=== PATIENT | female | born 2000 | race Caucasian/White ===

== ENCOUNTER 2019-12-14 19:24 | Emergency (ER) | payer OTHER, SELFPAY ==
--- NOTE | 2019-12-14 19:27 | ED.GENADULT ---
HPI - General Adult General Chief complaint: Upper Respiratory Infection Stated complaint: Sore Throat Time Seen by Provider: 12/14/19 19:41 Source: patient Mode of arrival: ambulatory Limitations: no limitations History of Present Illness HPI narrative: 19-year-old female patient resents to the [facility] with complaints of sore throat for the past 3 days. Patient states she has been running a fever as high as 101 but denies any runny nose, or ear pain. Denies any cough, chest pain, shortness of breath, abdominal pain, nausea, vomiting or diarrhea. Patient states she did not get a flu shot this year. Related Data Allergies Allergy/AdvReac Type Severity Reaction Status Date / Time azithromycin Allergy Intermediate Swelling Verified 12/14/19 19:39 Penicillins Allergy Unknown Swelling Verified 12/14/19 19:39 Review of Systems Review of Systems: Narrative: CONSTITUTIONAL: Positive subjective fever, denies chills, or sweats. EYES: Denies visual changes, redness, or discharge. ENT: Denies rhinorrhea, congestion, positive sore throat, denies otalgia. CARDIOVASCULAR: Denies chest pain, palpitations, or edema. RESPIRATORY: Denies cough or dyspnea. GASTROINTESTINAL: Denies abdominal pain, nausea, vomiting, or diarrhea. GENITOURINARY: Denies dysuria or hematuria. SKIN: Denies rash or itching. MUSCULOSKELETAL: Denies back pain, joint pain, or myalgia. NEUROLOGIC: Denies headache, numbness, or weakness. PSYCHIATRIC: Denies anxiety or depression. PMFSH Family History Family History Grandparent Diabetes mellitus Father Hypertension Cerebrovascular accident Social History Social History Alcohol intake: never Comments At the time of my signature I agree with nursing past medical history, surgical, social, and family history. There is no relevant family history pertinent to the presenting complaint. Exam Narrative: Exam Narrative: GENERAL: Well-appearing, well-nourished, and in no acute distress. HEAD: Normocephalic, atraumatic. No tenderness noted to frontal maxillary sinuses on palpation. EYES: PERRLA and EOMI. ENT: Nares clear, no rhinorrhea or epistaxis. Mucous membranes moist. Posterior pharynx with erythema and bilateral white exudates noted. Bilateral TMs are clear no erythema or foreign bodies in the canal. NECK: Supple. No lymphadenopathy CHEST: Clear to auscultation. No respiratory distress. HEART: Regular rate and rhythm. No murmur heard. Normal peripheral pulses. ABDOMEN: Soft, nontender, nondistended, normal active bowel sounds. EXTREMITIES: Normal range of motion. No edema. SKIN: Warm, dry, no rash. NEURO: No focal deficits. Alert and oriented x3. Course Vital Signs Vital signs: Vital Signs Temperature 37.5 C 12/14/19 19:34 Pulse Rate 93 12/14/19 19:34 Respiratory Rate 16 12/14/19 19:34 Blood Pressure 129/66 12/14/19 19:34 Pulse Oximetry 98 12/14/19 19:34 Temperature 37.5 C 12/14/19 19:34 Pulse Rate 93 12/14/19 19:34 Respiratory Rate 16 12/14/19 19:34 Blood Pressure 129/66 12/14/19 19:34 Pulse Oximetry 98 12/14/19 19:34 Vital signs reviewed. Medical Decision Making Differential Diagnosis Differential Diagnosis: Differential diagnosis: Viral pharyngitis, pharyngitis, group A strep, infectious mononucleosis, gonococcal pharyngitis, exudative pharyngitis, oral candidiasis. Chronic allergies, postnasal drip, GERD, abscess formation, but glottitis, retropharyngeal abscess formation, or airway obstruction. Notify patient she is positive today for strep and therefore we will discharge her home with an oral antibiotic for her strep infection. Discussed with patient she can take Tylenol and ibuprofen as needed for the pain. Discussed with patient if she has worsening symptoms she would need to follow-up with her primary doctor or report to the emergency department. Annelise
[2019-12-14 19:34] VITALS: BP 129/66; PULSE 93; RESP 16; TEMP 37.5; O2SAT 98
== END 2019-12-14 19:48 | disposition home or self-care (01) ==
PROVIDERS: Emergency Provider Nurse Practitioner Family; PCP Emergency Medicine
DX: J02.0 Streptococcal pharyngitis (principal)
CPT/HCPCS: 87880; 99213; G0463

== ENCOUNTER 2021-06-15 18:39 | Emergency (ER) | payer OTHER, SELFPAY ==
--- NOTE | ~2021-06-15 | CT_ITS ---
EXAMINATION: CT brain wo con DATE: 06/15/2021 21:24 INDICATION: Frontal headache. Blurry vision. TECHNIQUE: Computed tomography (CT) of the head was performed without intravenous contrast. The mA wa s adjusted according to patient size. Iterative reconstruction technique was employed. Exam dose: 60 5.33 mGy-cm total exam DLP. COMPARISON: None FINDINGS: No intracranial mass lesion or hemorrhage, midline shift or mass effect. No encephalomalaci a or cerebrovascular accident. Normal ventricular size. Normal linton-white matter differentiation. No subdural or epidural hematoma. There is complete opacification of the right sphenoid sinus. Included paranasal sinuses are otherwise normally developed and aerated. The mastoid air cells are normally developed and aerated. No fracture or bone destruction of the cranial vault IMPRESSION: Complete opacification of the right sphenoid sinus; otherwise negative Reviewed, dictated and finalized at [facility] Reviewed, dictated and finalized at [facility]. IMPRESSION: Complete opacification of the right sphenoid sinus; otherwise nega tive
[2021-06-15 18:45] VITALS: BP 124/67; PULSE 96; RESP 18; TEMP 36.3
[2021-06-15 20:17] VITALS: BP 116/63; PULSE 82; RESP 18; O2SAT 100
[2021-06-15 20:25] LABS: Basophils Percent Auto 0.4 % (0.2-1.2); Eosinophils Absolute Auto 0.2 K/mm3 (0-0.3); Eosinophils Percent Auto 1.8 % (0-4.4); Hematocrit 46.1 % (37.0-47.0); Hemoglobin 14.4 g/dL (12.0-15.0); Immature Granulocyte Absolute 0.08 K/mm3 (0.00-0.031); Immature Granulocyte Percent A 0.8 % (0-0.5); Lymphocytes Absolute Auto 3.53 K/mm3 (0.9-3.2); Lymphocytes Percent Auto 36.6 % (18.3-44.2); Mean Corpuscular HGB Conc 31.2 g/dl (32-36); Mean Corpuscular Hemoglobin 28.8 pg (26-34); Mean Corpuscular Volume 92.2 fl (80-100); Monocytes Absolute Auto 0.8 K/mm3 (0.1-0.6); Monocytes Percent Auto 8.5 % (2.6-8.5); Neutrophils Percent Auto 51.9 % (45.5-73.1); Platelet Count Result 339 k/mm3 (150-375); Red Cell Distribution Width 15.4 % (11.5-14.5); White Blood Count 9.7 K/mm3 (4.5-10.0)
[2021-06-15 20:36] LABS: Alanine Aminotransferase 51 U/L (4-35); Albumin Level 4.3 g/dL (3.5-5.1); Alkaline Phosphatase 97 U/L (38-126); Anion Gap 6 mmol/L (8-16); Aspartate Amino Transferase 39 U/L (14-36); Bilirubin,Total 0.3 mg/dL (0.2-1.3); Blood Urea Nitrogen 14 mg/dL (7-17); Calcium 9.9 mg/dL (8.4-10.2); Carbon Dioxide 30 mmol/L (22-30); Chloride 105 mmol/L (98-107); Estimated CRCL calculation 115 ml/min; Estimated Glomerular Filt Rate > 60; Glucose 75 mg/dL (65-110); Potassium 4.5 mmol/L (3.4-5.0); Sodium 141 mmol/L (137-145)
--- NOTE | 2021-06-15 21:18 | PC.NURSE ---
Pt to CT at this time.
[2021-06-15 21:28] VITALS: BP 113/67; PULSE 79; RESP 20; O2SAT 100
[2021-06-15 21:31] VITALS: BP 114/71; PULSE 83; RESP 17; O2SAT 99
--- NOTE | 2021-06-15 21:58 | ED.HA ---
HPI - Headache General Chief Complaint: Headache Stated Complaint: Headaches after having a child x 7 weeks Time Seen by Provider: 06/15/21 20:12 History of Present Illness HPI Narrative: Patient is a 21-year-old female who presents ER with headache. Ongoing for 7 weeks since she had her baby. Contacted her horse trainer who recommend she be evaluated. Patient denies any fevers or chills or sweats. She does endorse photophobia and occasional phonophobia. No history of migraines. She reports she has 8/10 pain but then when she takes Excedrin goes to 2/10. No complications with her . She is not currently breast-feeding. Related Data Allergies Allergy/AdvReac Type Severity Reaction Status Date / Time azithromycin Allergy Intermediate Swelling Verified 06/15/21 19:57 Penicillins Allergy Unknown Swelling Verified 06/15/21 19:57 Review of Systems Review of Systems: All systems reviewed & are unremarkable except as noted in HPI and below Constitutional: Constitutional: Denies chills, Denies fever(s) and Denies weakness Eyes: Eyes: Denies change in vision and Reports photophobia ENT: Denies nasal congestion and Denies sore throat Cardiovascular: Cardiovascular: Denies chest pain, Denies rapid heart rate and Denies radiating jaw, neck or arm pain Respiratory: Respiratory: Denies cough, Denies dyspnea and Denies wheezing Gastrointestinal: Gastrointestinal: Denies abdominal pain, Denies nausea and Denies vomiting Neurologic: Denies syncope, Reports headache(s), Denies focal weakness and Denies numbness PMFSH Past Medical History Medical History (Updated 06/15/21 @ 23:02 by Scooby Ortiz MD) Healthy female adult Surgical History Surgical History (Updated 06/15/21 @ 22:01 by Scooby Ortiz MD) No pertinent past surgical history Family History Family History Grandparent Diabetes mellitus Father Hypertension Cerebrovascular accident Social History Social History Alcohol intake: never Exam Narrative: GENERAL: Well-appearing, well-nourished, and in no acute distress. HEAD: Normocephalic, atraumatic. EYES: PERRL and EOMI. CHEST: Clear to auscultation. No respiratory distress. HEART: Regular rate and rhythm. Normal peripheral pulses. ABDOMEN: Soft, nontender, nondistended. EXTREMITIES: Normal range of motion. No edema. SKIN: Warm, dry, no rash. NEURO: Alert and oriented x3. PSYCH: Normal mood and affect. Course Course Emergency Course: Headache improved. Informed results. Discharge home. Vital Signs Vital signs: Vital Signs Temperature 97.4 F L 06/15/21 18:45 Pulse Rate 96 06/15/21 18:45 Respiratory Rate 18 06/15/21 18:45 Blood Pressure 124/67 06/15/21 18:45 Temperature 97.4 F L 06/15/21 18:45 Pulse Rate 70 06/15/21 22:13 Respiratory Rate 19 06/15/21 22:13 Blood Pressure 110/54 L 06/15/21 22:13 Pulse Oximetry 99 06/15/21 22:13 MDM - Headache Lab Data Result diagrams: 06/15/21 20:19 06/15/21 20:18 Labs: Lab Results 06/15/21 06/15/21 06/15/21 Range/Units 20:18 20:19 22:13 WBC 9.7 (4.5-10.0) K/mm3 RBC 5.00 (4.2-5.4) M/mm3 Hgb 14.4 (12.0-15.0) g/dL Hct 46.1 (37.0-47.0) % MCV 92.2 (80-100) fl MCH 28.8 (26-34) pg MCHC 31.2 L (32-36) g/dl RDW 15.4 H (11.5-14.5) % Plt Count 339 (150-375) k/mm3 MPV 9.0 (7.4-10.4) fl Immature Gran % (Auto) 0.8 H (0-0.5) % Neut % (Auto) 51.9 (45.5-73.1) % Lymph % (Auto) 36.6 (18.3-44.2) % [place] % (Auto) 8.5 (2.6-8.5) % Eos % (Auto) 1.8 (0-4.4) % Baso % (Auto) 0.4 (0.2-1.2) % Lymph # (Auto) 3.53 H (0.9-3.2) K/mm3 [place] # (Auto) 0.8 H (0.1-0.6) K/mm3 Eos # (Auto) 0.2 (0-0.3) K/mm3 Baso # (Auto) 0.0 (0.0-0.1) K/mm3 Abs Immat Gran (auto) 0.08 H (0.00-0.031) K/mm3 Absolute
[2021-06-15] MEDS: SODIUM CHLORIDE 0.9% IV 1,000 ML 999 ML IV CONT (22:05)
[2021-06-15] MEDS: diphenhydrAMINE HCl INJ 50 MG/ML VIAL 25 MG IV PUSH (22:06)
[2021-06-15] MEDS: METOCLOPRAMIDE HCL INJ 10 MG/2 ML VIAL IV PUSH (22:08)
[2021-06-15] MEDS: KETOROLAC 30 MG/ML VIAL (*BKC) IV PUSH (22:11)
[2021-06-15 22:13] VITALS: BP 110/54; PULSE 70; RESP 19; O2SAT 99
[2021-06-15 22:24] LABS: Add Urine Microscopic? YES; Appearance Urine Clear (Clear); Bacteria Urine Trace /hpf; Bilirubin Urine Negative (Negative); Blood Urine Negative (Negative); Color Urine Yellow (Yellow); Glucose Urine UA Negative (Negative); Ketones Urine Negative (Negative); Leukocyte Esterase Ur Negative LEU/UL (Negative); Mucus Urine Rare /lpf; Nitrate Urine Negative (Negative); Protein Urine Negative (Negative); Specific Grav Ur 1.018 (1.001-1.035); Squamous Epithelial Cell Urine Rare /hpf (Few); WBC Urine 0-3 /hpf
[2021-06-15 23:12] VITALS: BP 135/61; PULSE 78; RESP 12; O2SAT 98
== END 2021-06-15 23:16 | disposition home or self-care (01) ==
PROVIDERS: Emergency Provider Emergency Medicine
DX: R51.9 Headache, unspecified (principal)
CPT/HCPCS: 36415; 70450; 80053; 81001; 85025; 96361; 96374; 96375; 99284; J1200; J1885; J2765; J7030

== ENCOUNTER 2022-01-20 12:04 | Emergency (ER) | payer OTHER, SELFPAY ==
[2022-01-20 12:12] VITALS: BP 131/78; PULSE 84; RESP 18; TEMP 36.4; O2SAT 97
[2022-01-20 12:16] VITALS: BP 131/78; PULSE 84; RESP 18; TEMP 36.4; O2SAT 97
--- NOTE | 2022-01-20 12:49 | ED.FEMALEGU ---
HPI - Female Genitourinary General Chief complaint: Urogenital-Female Stated complaint: UTI Time Seen by Provider: 01/20/22 12:43 Source: patient and RN notes reviewed Mode of arrival: ambulatory Limitations: no limitations History of Present Illness HPI Narrative: Patient presents today complaining of 1.5-week history of dysuria, frequency, intermittent lower abdominal cramping, incomplete bladder emptying, and left kidney pain . Denies hematuria, fever, nausea or vomiting. She has been drinking cranberry juice. Denies any recent antibiotic use. MD elicited complaint: UTI Related Data Allergies Allergy/AdvReac Type Severity Reaction Status Date / Time azithromycin Allergy Intermediate Swelling Verified 01/20/22 12:13 Penicillins Allergy Unknown Swelling Verified 01/20/22 12:13 Review of Systems Review of Systems: CONSTITUTIONAL: Denies body aches, fever, chills, or sweats. EYES: Denies visual changes, redness, or discharge. ENT: Denies rhinorrhea, congestion, sore throat, or otalgia. CARDIOVASCULAR: Denies chest pain, palpitations, or edema. RESPIRATORY: Denies cough or dyspnea. GASTROINTESTINAL: Denies abdominal pain, nausea, vomiting, or diarrhea. GENITOURINARY: Denies hematuria. + Dysuria, frequency, cramping, left flank pain SKIN: Denies rash, itching, or wounds. MUSCULOSKELETAL: Denies back pain, joint pain, or myalgia. NEUROLOGIC: Denies headache, numbness, tingling, or weakness. PSYCH: Denies depression or anxiety. [facility] Past Medical History Medical History Healthy female adult Surgical History Surgical History No pertinent past surgical history Family History Family History Grandparent Diabetes mellitus Father Hypertension Cerebrovascular accident Social History Social History Alcohol intake: never Comments At time of signature, I have reviewed and agree with nursing past medical, surgical, social and family history unless otherwise noted. Please see nursing chart for further information. There is no relevant family history pertinent to the presenting complaint Exam Narrative: GENERAL: Well-appearing, well-nourished, and in no acute distress. HEAD: Normocephalic, atraumatic. EYES: EOMI. No redness or drainage. Conjunctivae normal. ENT: Mucous membranes pink and moist. NECK: Normal AROM. Supple. No lymphadenopathy. CHEST: No respiratory distress. Clear to auscultation. HEART: Regular rate and rhythm. No murmur appreciated. Normal peripheral pulses. ABDOMEN: Soft, nontender, nondistended, normal active bowel sounds. -CVAT MUSCULOSKELETAL: No bony tenderness. EXTREMITIES: Normal range of motion. No edema. SKIN: Warm, dry, no rash. Capillary refill normal. Normal skin turgor. NEURO: No focal deficits. Alert and oriented x3. Gait steady. PSYCH: Normal affect. No signs of depression or anxiety. Course Course Level of Care: Express Care Visit Vital Signs Vital signs: Vital Signs Temperature 97.5 F L 01/20/22 12:12 Pulse Rate 84 01/20/22 12:12 Respiratory Rate 18 01/20/22 12:12 Blood Pressure 131/78 01/20/22 12:12 Pulse Oximetry 97 01/20/22 12:12 Temperature 97.5 F L 01/20/22 12:16 Pulse Rate 84 01/20/22 12:16 Respiratory Rate 18 01/20/22 12:16 Blood Pressure 131/78 01/20/22 12:16 Pulse Oximetry 97 01/20/22 12:16 Reviewed. Pt has been instructed to follow up with her PCP regarding her elevated blood pressure today. MDM - Female Genitourinary Differential Diagnosis Differential diagnosis: Likely urinary tract infection, vaginitis, cystitis and other (Pyelonephritis, interstitial cystitis) Lab Data Attestation: I reviewed the patient's lab results. Labs: Urine Glucose Negative
== END 2022-01-20 12:57 | disposition home or self-care (01) ==
PROVIDERS: Emergency Provider Nurse Practitioner
DX: N30.01 Acute cystitis with hematuria (principal)
CPT/HCPCS: 81003; 87086; 99213; G0463

== ENCOUNTER 2022-10-08 13:23 | Observation (INO) | payer OTHER, SELFPAY ==
[2022-10-08 13:41] VITALS: BP 108/59; PULSE 101
[2022-10-08 13:55] LABS: Appearance Urine Clear (Clear); Bilirubin Urine 1+ (Negative); Blood Urine Negative (Negative); Color Urine Yellow (Yellow); Glucose Urine UA Negative (Negative); Ketones Urine Trace mg/dL (Negative); Leukocyte Esterase Ur Negative LEU/UL (Negative); Nitrate Urine Negative (Negative); Protein Urine 1+ mg/dL (Negative); Urobilinogen Urine 0.2 mg/dL (<2.0)
[2022-10-08 14:00] VITALS: BP 101/59; PULSE 88
[2022-10-08 14:01] LABS: Bacteria Urine Trace /hpf; Mucus Urine Few /lpf; RBC Urine 0-2 /hpf (0-2); Squamous Epithelial Cell Urine Moderate /hpf (Few); WBC Urine 0-3 /hpf
[2022-10-08 14:05] LABS: Add Urine Microscopic? YES
[2022-10-08 14:50] VITALS: BMI 40.3
--- NOTE | 2022-10-08 15:03 | OBADM ---
This patient, Tonya Nina, admitted to the OB room OB Post 116 for observation. Patient/family oriented to hospital policies and general routines including ID bracelet, bed and alarms, visiting hours, pain management, procedures, bathroom and other care routines, personal items, smoking policy, room service/diet, and visiting hours. Patient/Family are encouraged to report perceived risks to care and to ask questions if they do not understand what they are told or what they should do.
--- NOTE | 2022-10-11 12:13 | PM.OBTRLD ---
OB - Triage/Final Diagnosis Visit Information Comments/Additional reasons for admission: I have assessed the risk for this patient, Tonya Nina, and determined that she would benefit from observation care. Evaluation Laboratory results: Laboratory Tests 10/08/22 13:42 Urine Color Yellow Urine Appearance Clear Urine pH 7.0 Ur Specific [place] 1.020 Urine Protein 1+ H Urine Glucose (UA) Negative Urine Ketones Trace Ur Blood (Man) Negative Urine Nitrate Negative Urine Bilirubin 1+ H Urine Urobilinogen 0.2 Leukocyte Esterase Rfl Negative Urine RBC 0-2 Urine WBC 0-3 Ur Squamous Epith Cells Moderate H Urine Bacteria Trace Urine Mucus Few H Final Diagnosis (1) Abdominal pain affecting : Code(s): O26.899 - Other specified related conditions, unspecified trimester; R10.9 - Unspecified abdominal pain Status: Acute (2) Cough: Code(s): R05.9 - Cough, unspecified Status: Acute
== END 2022-10-08 14:35 | disposition home or self-care (01) ==
PROVIDERS: Admitting Provider Obstetrics & Gynecology; Visit Provider Obstetrics & Gynecology
DX: O26.893 Other specified pregnancy related conditions, third trimester (principal); R10.9 Unspecified abdominal pain; R05.9 Cough, unspecified; Z3A.37 37 weeks gestation of pregnancy
CPT/HCPCS: 81001; G0378; G0379

== ENCOUNTER 2022-10-27 08:36 | Inpatient (IN) | payer OTHER, SELFPAY ==
[2022-10-27] VITALS (36 sets, daily range): BP systolic 89–137; BP diastolic 43–87; PULSE 70–113; RESP 16–18; TEMP 36–37.2; O2SAT 96–99; BMI 40.7
--- NOTE | 2022-10-27 08:36 | LDADM ---
This patient, Tonya Nina, was admitted to Labor/Delivery/Recovery 105 on 10/27/22 at 08:36. Plans for labor, pain management and were discussed with patient. Patient/family oriented to hospital policies and general routines including ID bracelet, bed and alarms, visiting hours, pain management, procedures, bathroom and other care routines, personal items, smoking policy, room service/diet and guest tray routines, infant security routines, and visiting hours. Patient/Family are encouraged to report perceived risks to care and to ask questions if they do not understand what they are told or what they should do. See OBIX for further documentation.
[2022-10-27 09:30] LABS: Basophils Percent Auto 0.4 % (0.2-1.2); Eosinophils Absolute Auto 0.1 K/mm3 (0-0.3); Eosinophils Percent Auto 0.6 % (0-4.4); Hematocrit 35.2 % (37.0-47.0); Hemoglobin 11.3 g/dL (12.0-15.0); Immature Granulocyte Absolute 0.16 K/mm3 (0.00-0.031); Immature Granulocyte Percent A 1.4 % (0-0.5); Lymphocytes Absolute Auto 2.48 K/mm3 (0.9-3.2); Lymphocytes Percent Auto 22.3 % (18.3-44.2); Mean Corpuscular HGB Conc 32.1 g/dl (32-36); Mean Corpuscular Hemoglobin 27.8 pg (26-34); Mean Corpuscular Volume 86.7 fl (80-100); Mean Platelet Volume 9.5 fl (7.4-10.4); Monocytes Absolute Auto 0.8 K/mm3 (0.1-0.6); Monocytes Percent Auto 7.2 % (2.6-8.5); Neutrophils Absolute Auto 7.6 K/mm3 (1.3-6.7); Neutrophils Percent Auto 68.1 % (45.5-73.1); Platelet Count Result 286 k/mm3 (150-375); Red Blood Count 4.06 M/mm3 (4.2-5.4); Red Cell Distribution Width 14.6 % (11.5-14.5); White Blood Count 11.1 K/mm3 (4.5-10.0)
[2022-10-27] MEDS: LACTATED RINGERS 1,000 ML 125 ML IV CONT ×2 (10:40→13:33)
[2022-10-27] MEDS: OXYTOCIN 30 UNITS/NS 500 ML 30 UNITS/500 ML BAG IV CONT (10:41)
[2022-10-27] MEDS: CLINDAMYCIN 900 MG/D5W 50 ML 900 MG/50 ML PIGGYBACK 50 MG IVPB (10:41)
--- NOTE | 2022-10-27 12:03 | PM.IMHP ---
H&P: HPI History of Present Illness Date/Time: 10/27/22 12:03 Chief Complaint: Labor Narrative: a 22-year-old EDC is 10/27/2022 by early ultrasound and visit complains labor at term she is negative for group B strep in her has been complicated PMFSH Past Medical History Medical History Healthy female adult Surgical History Surgical History No pertinent past surgical history Family History Family History Grandparent Diabetes mellitus Father Hypertension Cerebrovascular accident S/P CABG x 5 Social History Social History Years smoked: 5 Smoking status: Current every day smoker Tobacco type: cigarettes Alcohol intake: never Substance use: never Lack of Transportation: No Lack of Food: Never True Current Housing: I Have Housing Concerned About Future Housing: No Difficulty Paying Gas/Electric Bills: No Difficulty Paying for Meds: No Currently Unemployed: No Education: High School Diploma/GED Difficulty w/ Childcare or Family Care: No Spiritual care concerns: No Meds Home Medications and Allergies Allergies Allergy/AdvReac Type Severity Reaction Status Date / Time azithromycin Allergy Intermediate Swelling Verified 10/12/22 15:43 Penicillins Allergy Unknown Swelling Verified 10/12/22 15:43 Vital Signs Vital Signs - 24 hr 10/27/22 08:59 10/27/22 09:01 10/27/22 09:31 Temperature Pulse Rate 97 113 H 113 H Blood Pressure 119/68 119/70 112/68 Oxygen Delivery 10/27/22 09:46 10/27/22 10:01 10/27/22 10:07 Temperature 97.9 F Pulse Rate 103 H 102 H Blood Pressure 111/59 L 111/63 Oxygen Delivery 10/27/22 10:16 10/27/22 10:31 10/27/22 11:02 Temperature Pulse Rate 99 96 96 Blood Pressure 122/59 L 122/63 118/61 Oxygen Delivery 10/27/22 11:16 10/27/22 11:31 10/27/22 11:46 Temperature Pulse Rate 84 93 91 Blood Pressure 117/50 L 116/63 109/65 Oxygen Delivery 10/27/22 11:58 10/27/22 12:01 10/27/22 09:57 Temperature 96.8 F L Pulse Rate 87 Blood Pressure 119/87 Oxygen Delivery Room Air Exam Const: General: cooperative, healthy appearing and comfortable Nutritional Appearance: overweight Orientation/consciousness: oriented to person, oriented to place and oriented to time HENMT: Head: normal to inspection Resp: Effort & Inspection: normal respiratory effort Cardio: Rate: regular rate Rhythm: regular rhythm Heart sounds: S1 normal heart sound present and S2 normal heart sound present GI: Inspection: normal to inspection ( soft gravid uterus) : External Female Exam: normal external appearance Speculum Exam - Vagina: normal appearance of the vagina Speculum Exam - Cervix: normal appearance of the cervix ( /-1. AROM clear FHTs were reassuring) H&P: Results Labs Labs: Short CBC 10/27/22 Range/Units 09:03 WBC 11.1 H (4.5-10.0) K/mm3 Hgb 11.3 L D (12.0-15.0) g/dL Hct 35.2 L (37.0-47.0) % Plt Count 286 (150-375) k/mm3 Assessment and Plan Assessment and plan (1) Term : Code(s): Z34.90 - Encounter for supervision of normal , unspecified, unspecified trimester Status: Acute Plan spontaneous vaginal delivery is expected
--- NOTE | 2022-10-27 14:23 | PM.OBPRVD ---
OB - Delivery Note Procedure Delivery date: 10/27/22 Induction method: None Delivery augmentation: Pitocin Delivery monitor: External FHT Route of delivery: Episiotomy description: None Laceration Description: None Specimen: No Quantitative Blood Loss (ml): 60 Anesthesia type: None Disposition: Floor Baby Date of : 10/27/22 Time of : 14:16 Weeks of gestation at delivery: 39 Infant gender: Female Weight (pounds): 6 Weight (ounces): 15 presentation: vertex position: Right Occiput Anterior Placenta delivery description: Spontaneous Cord Vessel Description: 3 Vessels, Nuchal Cord, Loose, Reduced and Delayed Cord Clamping score one minute: 9 score five minutes: 9
[2022-10-27] MEDS: OXYTOCIN 30 UNITS/NS 500 ML 30 UNITS/500 ML BAG 125 UNITS IV CONT (14:52)
[2022-10-27 15:57] LABS: Rapid Plasma Reagin Non-Reactive (NonReactive)
[2022-10-27] MEDS: WITCH HAZEL 40 PADS 1 PAD TOPICAL (16:47)
[2022-10-27] MEDS: BENZOCAINE 20% AER SPR (*SP) 56 GM CAN 1 SPRAY TOPICAL (16:47)
--- NOTE | 2022-10-27 17:00 | OBPPTRN ---
Patient transferred to post room #285 via wheelchair. Support person present. Oriented to unit, room, information board, rooming in, admission packet and security measures. Patient verbalizes understanding.
[2022-10-27] MEDS: IBUPROFEN 600 MG TABLET PO (17:18)
[2022-10-27] MEDS: DOCUSATE SODIUM 100 MG CAPSULE PO (17:18)
[2022-10-28 05:05] VITALS: BP 116/67; PULSE 74; RESP 18; TEMP 36.8; O2SAT 99
[2022-10-28 05:29] LABS: Hematocrit 33.1 % (37.0-47.0); Hemoglobin 10.5 g/dL (12.0-15.0)
[2022-10-28] MEDS: ACETAMINOPHEN 325 MG TABLET 650 MG PO ×2 (05:46→13:53)
[2022-10-28] MEDS: IBUPROFEN 600 MG TABLET PO ×2 (05:47→13:53)
--- NOTE | 2022-10-28 07:05 | P.PNOB_ITS ---
OB - PN: Subj Subjective Date/time seen: 10/28/22 07:05 Patient comments: no complaints and pain well controlled baby status: doing well and nursing well OB - PN: Obj Data Labs 10/28/22 04:15 Labs: Laboratory Results - last 24 hr 10/27/22 10/27/22 10/27/22 09:03 09:03 09:03 WBC 11.1 H RBC 4.06 L Hgb 11.3 L D Hct 35.2 L MCV 86.7 MCH 27.8 MCHC 32.1 RDW 14.6 H Plt Count 286 MPV 9.5 Immature Gran % (Auto) 1.4 H Neut % (Auto) 68.1 Lymph % (Auto) 22.3 [place] % (Auto) 7.2 Eos % (Auto) 0.6 Baso % (Auto) 0.4 Lymph # (Auto) 2.48 [place] # (Auto) 0.8 H Eos # (Auto) 0.1 Baso # (Auto) 0.0 Abs Immat Gran (auto) 0.16 H Absolute Neuts (auto) 7.6 H Absolute Nucleated RBC 0.0 Nucleated RBC % 0.0 RPR Non-reactive Blood Type A Negative Antibody Screen Negative 10/28/22 10/28/22 04:15 04:15 WBC RBC Hgb 10.5 L Hct 33.1 L MCV MCH MCHC RDW Plt Count MPV Immature Gran % (Auto) Neut % (Auto) Lymph % (Auto) [place] % (Auto) Eos % (Auto) Baso % (Auto) Lymph # (Auto) [place] # (Auto) Eos # (Auto) Baso # (Auto) Abs Immat Gran (auto) Absolute Neuts (auto) Absolute Nucleated RBC Nucleated RBC % RPR Blood Type A Negative Antibody Screen Negative OB - PN A/P Plan day: 1 Plan: routine care Time Spent With Patient Time: Total time spent is greater than 50% in coordination of care (as documented) at patient's floor/unit and/or counseling patient: Time with patient: less than 15 minutes Exam Const: General: cooperative, healthy appearing and comfortable Orientation/consciousness: oriented to person, oriented to place and oriented to time HENMT: Head: normal to inspection Resp: Effort & Inspection: normal respiratory effort Cardio: Rate: regular rate Rhythm: regular rhythm Heart sounds: S1 normal heart sound present and S2 normal heart sound present GI: Inspection: normal to inspection
[2022-10-28 08:00] VITALS: PULSE 80; RESP 18; O2SAT 97
[2022-10-28 08:20] VITALS: BP 109/52; PULSE 80; RESP 18; TEMP 36.8; O2SAT 97
[2022-10-28] MEDS: MULTIVIT/MIN/PREN/FOL AC/IRON TABLET 1 TAB PO (08:20)
[2022-10-28] MEDS: DOCUSATE SODIUM 100 MG CAPSULE PO (08:20)
[2022-10-28] MEDS: POLYSACCHARIDE IRON COMPLEX 150 MG CAPSULE PO (08:20)
[2022-10-28 12:18] VITALS: BP 104/52; PULSE 76; RESP 16; TEMP 36.8; O2SAT 97
[2022-10-28] MEDS: RHO(D) IMMUNE GLOBULIN 300 MCG/2 ML SYRINGE IM (13:49)
--- NOTE | 2022-10-28 14:58 | P.DS_ITS ---
DS: Admitting Diagnosis Discharge Date Admitting Diagnosis term DS: Discharge Diagnosis Discharge Diagnosis (1) Term : Code(s): Z34.90 - Encounter for supervision of normal , unspecified, unspecified trimester Status: Acute DS: Summary Hospital Course Reason for hospitalization: patient was admitted in active labor at term Hospital Course: patient underwent spontaneous vaginal delivery on 10/27/2022. Her hospital course unremarkable. She remained afebrile. She was up, voiding without difficulty, ambulating, generally without complaints. Time Spent with Patient Time attestation: Total time spent providing and/or coordinating discharge services: Exam Const: General: cooperative, healthy appearing and comfortable Nutritional Appearance: average body habitus Orientation/consciousness: oriented to person, oriented to place and oriented to time HENMT: Head: normal to inspection Resp: Effort & Inspection: normal respiratory effort Cardio: Rate: regular rate Rhythm: regular rhythm Heart sounds: S1 normal heart sound present and S2 normal heart sound present GI: Inspection: normal to inspection DS: Data Data Completed and Pending Labs on day of discharge: Labs from last 24 hours 10/28/22 10/28/22 10/27/22 04:15 04:15 09:03 Hgb 10.5 L Hct 33.1 L RPR Non-reactive Blood Type A Negative Antibody Screen Negative Screen Negative Baby's Blood Type A pos Baby's AGUSTIN Negative Doses of RhIg Required 1 Discharge Plan Discharge Attending physician on discharge: Angel Lopez Discharging Clinician: Angel Lopez Patient Disposition: Home, Self-Care Activity: may shower, no straining and pelvic rest Diet: heart healthy Wound Care Instructions: follow printed instructions Patient Instructions: Antibiotic Form Stand Alone Forms: General Discharge Information Follow-up/Referrals: Angel Lopez MD [Physician] - Date of admission: 10/27/22 08:36 Primary Care Provider: PHYSICIAN,[employer] Admitting Provider: Angel Lopez Attending physician on admission: Angel Lopez Condition: Stable
--- NOTE | 2022-10-28 17:32 | PC.NURSE ---
[id number] Introductions were made, then consulted with patient to assess needs related to . Mother led the conversation with her?plans to feed?her infant and the?experience so far. Mother demonstrated that she is able to independently latch infant with appropriate positioning/alignment. She denies any nipple discomfort and is responsively . Infant is currently meeting outcomes for weight, output, jaundice and feeding frequencies of 8-12 times in 24 hours. Mother declines any additional assistance/education at this time. Mother is encouraged to call for assistance if her infant doesn?t latch or there is discomfort with latching. Mother voiced understanding of information shared and mom and baby guide reviewed for additional resource information. Reported to the primary RN.
[2022-10-28 20:00] VITALS: BP 108/53; PULSE 95; RESP 18; TEMP 36.6; O2SAT 98
[2022-10-29] MEDS: IBUPROFEN 600 MG TABLET PO ×2 (04:23→11:17)
[2022-10-29] MEDS: ACETAMINOPHEN 325 MG TABLET 650 MG PO ×2 (04:23→11:16)
--- NOTE | 2022-10-29 07:12 | PM.OBPNVD ---
OB - PN: Subj Subjective Date/time seen: 10/29/22 07:12 Patient comments: no complaints and pain well controlled baby status: doing well and nursing well OB - PN: Obj Data Labs 10/28/22 04:15 Labs: Laboratory Results - last 24 hr 10/28/22 04:15 Blood Type A Negative Antibody Screen Negative Screen Negative Baby's Blood Type A pos Baby's AGUSTIN Negative Doses of RhIg Required 1 OB - PN A/P Plan day: 2 Plan: routine care, discharge home and follow up 6 weeks Time Spent With Patient Time: Total time spent is greater than 50% in coordination of care (as documented) at patient's floor/unit and/or counseling patient: Time with patient: less than 15 minutes Exam Const: General: cooperative, healthy appearing and comfortable Nutritional Appearance: average body habitus Orientation/consciousness: oriented to person, oriented to place and oriented to time HENMT: Head: normal to inspection Resp: Effort & Inspection: normal respiratory effort GI: Inspection: normal to inspection (fundus firm)
[2022-10-29] MEDS: MULTIVIT/MIN/PREN/FOL AC/IRON TABLET 1 TAB PO (08:01)
[2022-10-29 08:05] VITALS: BP 120/59; PULSE 69; RESP 18; TEMP 36.7; O2SAT 99
--- NOTE | 2022-10-29 09:33 | PC.NURSE ---
Patient instucted on viewing the discharge video Mother & Baby Care, The First Two Weeks . Patient was given the opportunity and encouraged to ask questions. Patient verbalized understanding of information shared and has been given the mother/baby guide for home reference.
[2022-10-29] MEDS: LANOLIN (LANSINOH) 7.5 GM CREAM 1 APPLIC TOPICAL (11:17)
[2022-10-31 12:54] VITALS: BP 116/81; PULSE 87; RESP 20; TEMP 36.8; O2SAT 98
== END 2022-10-29 11:30 | disposition home or self-care (01) | DRG 807 ==
LOC: ANHLDR 08:40 → ANHOB2 17:08
PROVIDERS: Admitting Provider Obstetrics & Gynecology; Visit Provider Obstetrics & Gynecology
DX: O62.3 Precipitate labor (principal); Z37.0 Single live birth; O99.334 Smoking (tobacco) complicating childbirth; F17.210 Nicotine dependence, cigarettes, uncomplicated; O76 Abnormality in fetal heart rate and rhythm complicating labor and delivery; O69.81X0 Labor and delivery complicated by cord around neck, without compression, not applicable or unspecified; Z3A.40 40 weeks gestation of pregnancy
CPT/HCPCS: 36415; 84112; 85014; 85018; 85025; 85461; 86592; 86850; 86900; 86901; 90384; A9270; J2590; J2790; J7120

== ENCOUNTER 2023-04-04 13:47 | Emergency (ER) | payer OTHER, SELFPAY ==
[2023-04-04 13:58] VITALS: BP 121/76; PULSE 88; RESP 16; TEMP 36.9; O2SAT 98
[2023-04-04 13:59] VITALS: BP 121/76; PULSE 88; RESP 16; TEMP 36.9; O2SAT 98
--- NOTE | 2023-04-04 14:20 | ED.URI ---
HPI - URI/Sore Throat General Chief Complaint: Upper Respiratory Infection Stated Complaint: Sore throat, ears hurt Time Seen by Provider: 04/04/23 14:20 Source: patient, RN notes reviewed and old records reviewed Mode of arrival: ambulatory Limitations: no limitations History of Present Illness HPI Narrative: 23-year-old female presents to the [facility] with complaints of a sore throat and right ear pain. Symptoms started on Monday, 2 days ago. Has taken Tylenol but no other treatment prior to arrival Currently Related Data Home Medications Medication Instructions Recorded Confirmed vits 75-iron 28 mg-folic pkg PO 04/04/23 acid 800 mcg-omega3 440 mg oral pack Allergies Allergy/AdvReac Type Severity Reaction Status Date / Time azithromycin Allergy Intermediate Swelling Verified 04/04/23 13:59 Penicillins Allergy Unknown Swelling Verified 04/04/23 13:59 Review of Systems Review of Systems: All systems reviewed & are unremarkable except as noted in HPI and below Constitutional: Constitutional: Reports no additional constitutional complaints Eyes: Eyes: Reports no additional eye complaints ENT: Reports as per HPI, Reports otalgia and Reports sore throat Cardiovascular: Cardiovascular: Reports no additional cardiovascular complaints, Denies chest pain and Denies dyspnea Respiratory: Respiratory: Reports no additional respiratory complaints, Denies chest congestion, Denies cough and Denies dyspnea Gastrointestinal: Gastrointestinal: Reports no additional gastrointestinal complaints, Denies abdominal pain, Denies nausea and Denies vomiting Musculoskeletal: Musculoskeletal: Reports no additional musculoskeletal complaints Integumentary/Breasts: Skin/Breast: Reports system reviewed and no additional complaints, except as docu Neurologic: Reports system reviewed and no additional complaints, except as documented Psychiatric: Psychiatric: Reports no additional psychiatric complaints Allergic/Immunologic: Allergic/Immunologic: Reports no additional allergic/immunologic complaints [facility] Past Medical History Medical History Healthy female adult Surgical History Surgical History No pertinent past surgical history Family History Family History Grandparent Diabetes mellitus Father Hypertension Cerebrovascular accident S/P CABG x 5 Social History Social History Years smoked: 5 Smoking status: Current every day smoker Tobacco type: cigarettes Alcohol intake: never Substance use: never Lack of Transportation: No Lack of Food: Never True Current Housing: I Have Housing Concerned About Future Housing: No Difficulty Paying Gas/Electric Bills: No Difficulty Paying for Meds: No Currently Unemployed: No Education: High School Diploma/GED Difficulty w/ Childcare or Family Care: No Spiritual care concerns: No Comments At the time of my signature, I reviewed and agree with the nursing past medical, surgical, social, and family history. There is no relevant family history pertinent to the patient complaint. Exam Const: General: cooperative, healthy appearing, comfortable, no acute distress, well developed, alert and well nourished Nutritional Appearance: well nourished Orientation/consciousness: patient oriented x3 Limitations: no limitations HENMT: Head: normal to inspection Ears: hearing grossly normal bilaterally, external ears normal, EAC's normal and TM abnormal dull on the right and with fluid behind the TM bilateral; not erythematous Face/Nose/Sinus: Normal external nose present, Normal nares present, Normal nasal mucous membranes and turbinates present and normal facial exam Face and sinus: normal facial exam Carmen
== END 2023-04-04 14:38 | disposition home or self-care (01) ==
PROVIDERS: Emergency Provider Nurse Practitioner
DX: H92.01 Otalgia, right ear (principal); J06.9 Acute upper respiratory infection, unspecified; F17.210 Nicotine dependence, cigarettes, uncomplicated
CPT/HCPCS: 87081; 87880; 99213; G0463

== ENCOUNTER 2023-09-11 17:06 | Emergency (ER) | payer OTHER, SELFPAY ==
--- NOTE | ~2023-09-11 | US_ITS ---
EXAMINATION: US breast LT limited HISTORY: Left breast pain and nipple discharge TECHNIQUE: Limited left breast ultrasound was performed. FINDINGS: No suspicious cystic or solid mass is identified. There is no sonographic correlate for the patient's reported breast pain or nipple discharge. IMPRESSION: No specific sonographic correlate is identified for the patient's breast pain or nipple discharge. Fu rther evaluation at this time should be based on clinical assessment. Continued follow-up physical ex amination is recommended. BI-RADS Category 1: Negative Reviewed, dictated and finalized at location A. [facility] IMPRESSION: No specific sonographic correlate is identified for the patient's breast pain o r nipple discharge. Further evaluation at this time should be based on clinical assessment. Continued follow-up physical examination is recommended. BI-RADS Category 1: Negative
[2023-09-11 17:22] VITALS: PULSE 85; RESP 17; TEMP 36.7; O2SAT 98
[2023-09-11 17:24] VITALS: BP 113/68
--- NOTE | 2023-09-11 17:58 | ED.GENADULT ---
HPI - General Adult General Chief complaint: Unspecified Stated complaint: L BREAST PAIN, Time Seen by Provider: 09/11/23 17:48 Source: patient Mode of arrival: ambulatory Limitations: no limitations History of Present Illness HPI narrative: This is a 23 year old female that presents to the ER for left breast pain. Reports she is currently breast feeding. She has been experiencing breast pain over the last 4 days. Reports pain on the bottom of her breast and underneath the nipple. Her TELESERVICES REPRESENTATIVE is Dr. Rhea Rizo. Denies fever, or erythema. Related Data Home Medications Medication Instructions Recorded Confirmed vits 75-iron 28 mg-folic pkg PO 04/04/23 acid 800 mcg-omega3 440 mg oral pack Allergies Allergy/AdvReac Type Severity Reaction Status Date / Time azithromycin Allergy Intermediate Swelling Verified 09/11/23 17:46 Penicillins Allergy Unknown Swelling Verified 09/11/23 17:46 Review of Systems Review of Systems: CONSTITUTIONAL: Denies fever, SKIN: Denies erythema BREAST: Reports pain. Denies abnormal lumps All systems reviewed & are unremarkable except as noted in HPI and below PMFSH Past Medical History Medical History Healthy female adult Surgical History Surgical History No pertinent past surgical history Family History Family History Grandparent Diabetes mellitus Father Hypertension Cerebrovascular accident S/P CABG x 5 Social History Social History (Updated 09/11/23 @ 18:02 by Yin Trevino PA-C) Years smoked: 5 Smoking status: Former smoker Alcohol intake: never Substance use: never Lack of Transportation: No Lack of Food: Never True Current Housing: I Have Housing Concerned About Future Housing: No Difficulty Paying Gas/Electric Bills: No Difficulty Paying for Meds: No Currently Unemployed: No Education: High School Diploma/GED Difficulty w/ Childcare or Family Care: No Spiritual care concerns: No Exam Narrative: GENERAL: Well-appearing, well-nourished, and in no acute distress. HEAD: Normocephalic, atraumatic. EYES: EOMI. CHEST: No respiratory distress. HEART: Regular rate EXTREMITIES: Normal range of motion. No edema. SKIN: Warm, dry, no rash. NEURO: No focal deficits. Alert and oriented x3. PSYCH: Normal mood and affect BREAST: Tender to palpation of left breast in the 6 o clock position. No overt erythema or edema Course Course Emergency Course: Patient updated on workup and agrees with plan of care Vital Signs Vital signs: Vital Signs Temperature 98.0 F 09/11/23 17:22 Pulse Rate 85 09/11/23 17:22 Respiratory Rate 17 09/11/23 17:22 Pulse Oximetry 98 09/11/23 17:22 Oxygen Delivery Room Air 09/11/23 17:22 Temperature 98.0 F 09/11/23 17:22 Pulse Rate 79 09/11/23 19:31 Respiratory Rate 16 09/11/23 19:31 Blood Pressure 114/70 09/11/23 19:31 Pulse Oximetry 96 09/11/23 19:31 Oxygen Delivery Room Air 09/11/23 17:22 Medical Decision Making MDM Narrative Medical decision making narrative: Patient presents to the ER for left breast pain ongoing over the last 4 days. She is afebrile and nontoxic appearing. No overt erythema on exam. Patient is tender to palpation in the area of concern. Reporting abnormal discharge from the nipple. US does not show any signs of abscess. Will be started on oral antibiotics for likely mild mastitis. She is to follow up with her TELESERVICES REPRESENTATIVE. She was given warnings to return to the ER Vital Signs Vital Signs: Vital Signs Temperature 98.0 F 09/11/23 17:22 Pulse Rate 85 09/11/23 17:22 Respiratory Rate 17 09/11/23 17:22 Pulse Oximetry 98 09/11/23 17:22 Oxygen Delivery Room Air 09/11/23 17:22 Temperature 98.0 F 09/11/23 17:22 Pulse Rate
[2023-09-11 19:31] VITALS: BP 114/70; PULSE 79; RESP 16; O2SAT 96
== END 2023-09-11 21:03 | disposition home or self-care (01) ==
PROVIDERS: Emergency Provider Physician Assistant
DX: N64.4 Mastodynia (principal); Z87.891 Personal history of nicotine dependence
CPT/HCPCS: 76642; 99284

== ENCOUNTER 2025-09-21 20:27 | Observation (INO) | payer OTHER, SELFPAY ==
[2025-09-21] VITALS (10 sets, daily range): BP systolic 102–123; BP diastolic 49–63; PULSE 71–90; BMI 39.9
--- NOTE | 2025-09-21 22:55 | OBADM ---
This patient, Tonya Nina, admitted to the OB room OB Post [facility] for observation. Patient/family oriented to hospital policies and general routines including ID bracelet, bed and alarms, visiting hours, pain management, procedures, bathroom and other care routines, personal items, smoking policy, room service/diet, and visiting hours. Patient/Family are encouraged to report perceived risks to care and to ask questions if they do not understand what they are told or what they should do.
[2025-09-22 11:50] LABS: OBXCEM ROM Plus Negative (Negative)
--- NOTE | 2025-09-23 07:38 | PM.OBTRLD ---
OB - Triage/Final Diagnosis Visit Information Reason for evaluation: threatened labor Comments/Additional reasons for admission: I have assessed the risk for this patient, Tonya Louis Gutierrezsamson, and determined that she would benefit from observation care. Evaluation Laboratory results: Laboratory Tests 09/21/25 22:35 Membranes Rupture Rom plus negative
== END 2025-09-21 23:20 | disposition home or self-care (01) ==
PROVIDERS: Admitting Provider Obstetrics & Gynecology Gynecology; Visit Provider Obstetrics & Gynecology Gynecology
DX: O47.03 False labor before 37 completed weeks of gestation, third trimester (principal); Z3A.35 35 weeks gestation of pregnancy
CPT/HCPCS: 84112; G0378; G0379